=== PATIENT | female | born 1990 | race Caucasian/White ===

== ENCOUNTER 2023-05-05 12:59 | Inpatient (IN) ==
[2023-05-05] MEDS ORDERED: Lidocaine 1% VIAL 10 MG/ML 30 ML VIAL INJ PRN (14:03)
[2023-05-05 18:10] LABS: ABS Basophils 0.1 10^3/uL (0.0-0.1); ABS Eosinophils 0.1 10^3/uL (0.0-0.5); ABS Lymphocytes 2.1 10^3/uL (1.0-4.8); ABS Monocytes 0.9 10^3/uL (0.0-0.9); Eosinophil % 0.5 %; Hematocrit 36.8 % (35-45); Hemoglobin 12.7 g/dL (11.5-14.3); Lymphocyte % 13.8 %; Mean Corpuscular Hemoglobin 31.5 pg (27-33); Mean Corpuscular Hgb Conc 34.6 g/dL (31-36); Mean Corpuscular Volume 91.2 fL (80-97); Mean Platelet Volume 9.6 fL (7.5-11.2); Platelet Count 211 10^3/uL (150-450); Red Blood Count 4.03 10^6/uL (3.63-4.92); Red Cell Distribution Width 12.9 % (12-17); White Blood Count 15.2 10^3/uL (3.8-11.8)
[2023-05-05 18:27] LABS: Albumin 3.7 g/dL (3.2-5.2); Albumin/Globulin Ratio 1.6 (1-3); Calcium 9.2 mg/dL (8.6-10.3); Creatinine, Serum 0.79 mg/dL (0.51-0.95); Globulin 2.3 g/dL (2-4); Potassium 4.1 mmol/L (3.5-5.0); Total Bilirubin 0.3 mg/dL (0.2-1.0); Uric Acid 5.1 mg/dL (2.3-6.6); eGFR CKD-EPI 102.5 (>60)
[2023-05-05] MEDS: Lactated Ringers 1000 ml BAG 1,000 ML IV ONE (19:55)
[2023-05-05] MEDS: Lidocaine 1.5% EPI 1:200,000 30 ML SDV ONE (19:58)
[2023-05-05] MEDS: OBEPIDURAL (200 ML) 200 ML EPIDURAL ONE (20:07)
[2023-05-05] MEDS ORDERED: Phenylephrine 40 mcg/mL 10mL (400mcg) SYRINGE IV PUSH PRN ×2 (20:13)
[2023-05-05] MEDS: Lactated Ringers 1000 ml BAG 1,000 ML IV SCH (21:00)
[2023-05-05 21:47] LABS: Urine Appearance Clear; Urine Bilirubin Negative (Negative); Urine Blood Negative (Negative); Urine Color Yellow; Urine Glucose Negative (Negative); Urine Ketones 1+ (Negative); Urine Nitrite Negative (Negative); Urine Protein Negative (Negative); Urine Specific Gravity 1.021 (1.002-1.030); Urine Urobilinogen Negative (Negative)
[2023-05-05 21:48] LABS: Urine Creatinine Concentration 210.4 mg/dL (20.00-320.00); Urine TP Creat Ratio 0.07 mg/mg
[2023-05-05 21:49] LABS: Urine Benzodiazepine Screen None Detected (None Detect); Urine Cannabinoids Screen None Detected (None Detect); Urine Opiates Screen None Detected (None Detect)
[2023-05-06] MEDS: Oxytocin in LR 20,000 MILLI.UNIT/1,000 ML BAG IV SCH ×2 (01:43→10:28)
[2023-05-06] MEDS: Ampicillin ADVAN 2 GM in NS 0.9% 100 ml BAG 100 ML IVPB SCH (02:40)
[2023-05-06] MEDS: Gentamicin ADULT 300 MG in NS 0.9% 100 ml BAG 100 ML IVPB SCH (03:20)
[2023-05-06] MEDS: OBEPIDURAL (200 ML) 200 ML EPIDURAL SCH (06:50)
[2023-05-06] MEDS ORDERED: Glycerin ADULT 2.4 gm SUPP PR PRN (09:33)
[2023-05-06] MEDS ORDERED: Lactated Ringers 1000 ml BAG 1,000 ML IV SCH (10:00)
[2023-05-06] MEDS: Dibucaine 1% OINT 28.35 GM TUBE PR PRN (10:58)
[2023-05-06] MEDS: Witch Hazel PAD JAR TOPICAL PRN (10:58)
[2023-05-07] MEDS: Lidocaine 1% VIAL 10 MG/ML 30 ML VIAL ONE (07:07)
[2023-05-07 07:29] LABS: ABS Basophils 0.1 10^3/uL (0.0-0.1); ABS Eosinophils 0.1 10^3/uL (0.0-0.5); ABS Lymphocytes 1.9 10^3/uL (1.0-4.8); ABS Monocytes 1.2 10^3/uL (0.0-0.9); ABS Neutrophils 18.2 10^3/uL (1.5-7.6); Eosinophil % 0.4 %; Hematocrit 27.6 % (35-45); Hemoglobin 9.6 g/dL (11.5-14.3); Lymphocyte % 8.9 %; Mean Corpuscular Hemoglobin 31.9 pg (27-33); Mean Corpuscular Volume 91.3 fL (80-97); Mean Platelet Volume 9.2 fL (7.5-11.2); Platelet Count 160 10^3/uL (150-450); Red Blood Count 3.02 10^6/uL (3.63-4.92); Red Cell Distribution Width 12.9 % (12-17); White Blood Count 21.5 10^3/uL (3.8-11.8)
[2023-05-07] MEDS: Methylergonovine 0.2 mg AMPULE 1 ml AMP IM ONE (19:31)
[2023-05-07] MEDS: Lactated Ringers 1000 ml BAG 1,000 ML IV ONE (19:31)
[2023-05-08 08:11] VITALS: BP 134/73
[2023-05-08 10:07] LABS: ABS Basophils 0.1 10^3/uL (0.0-0.1); ABS Eosinophils 0.1 10^3/uL (0.0-0.5); ABS Lymphocytes 2.1 10^3/uL (1.0-4.8); ABS Monocytes 0.6 10^3/uL (0.0-0.9); Eosinophil % 0.7 %; Hematocrit 33.5 % (35-45); Hemoglobin 11.3 g/dL (11.5-14.3); Lymphocyte % 16.5 %; Mean Corpuscular Hemoglobin 31.1 pg (27-33); Mean Corpuscular Hgb Conc 33.7 g/dL (31-36); Mean Corpuscular Volume 92.2 fL (80-97); Mean Platelet Volume 9.4 fL (7.5-11.2); Platelet Count 210 10^3/uL (150-450); Red Blood Count 3.64 10^6/uL (3.63-4.92); Red Cell Distribution Width 13.3 % (12-17); White Blood Count 12.9 10^3/uL (3.8-11.8)
== END 2023-05-08 11:52 | disposition home or self-care (01) | DRG 560 ==
LOC: MCHOBOUT 12:59 → MCHOB 14:09
PROVIDERS: ADMIT Midwife; ATTEND Midwife